=== PATIENT | male | born 1985 | race Caucasian/White ===

== ENCOUNTER 2017-03-06 19:45 | Emergency (ER) | payer OTHER ==
[2017-03-06 20:18] VITALS: BP 135/99; PULSE 71; RESP 18; O2SAT 98
--- NOTE | 2017-03-06 20:31 | PD ---
HPI Chief Complaint: Psychiatric Symptoms Time Seen by Provider: 20:28 Travel History International Travel<30 days: No Contact w/Intl Traveler<30days: No History of Present Illness HPI Patient comes in after being evaluated at different ER facility and placed under Chatman act there and was transferred here to be evaluated by a psychiatrist here in the morning. Patient states he was feeling depressed and thoughts of harming himself but does not have any suicidal or homicidal ideations currently. Patient states he has been under a lot of stress and feeling some depression. Patient denies any medical concerns at this time. Denies any chest pain, shortness breath, fevers, nausea, abdominal pain, or other medical concerns. PFSH Past Medical History Fibromyalgia: Yes Social History Alcohol Use: No Tobacco Use: Yes Substance Use: No Review of Systems Except as stated in HPI: all other systems reviewed are Neg Physical Exam Narrative GENERAL: Well-developed, well nourished, in no acute distress, and non-ill appearing. SKIN: Focused skin assessment warm and dry. HEAD: Atraumatic. Normocephalic. EYES: Pupils equal and round. EOMI. No scleral icterus. No injection or drainage. ENT: No nasal bleeding or discharge. Mucous membranes pink and moist. NECK: Trachea midline. Supple. No nuclear rigidity. CARDIOVASCULAR: Regular rate and rhythm. No murmur appreciated. RESPIRATORY: No accessory muscle use. No respiratory distress. Clear to auscultation. Breath sounds equal bilaterally. MUSCULOSKELETAL: No obvious deformities. No clubbing. No cyanosis. No edema. Full range of motion. NEUROLOGICAL: Awake and alert. No obvious cranial nerve deficits. Motor grossly within normal limits. Normal speech. PSYCHIATRIC: Appropriate mood and affect; insight and judgment normal. Data Data Last Documented VS Vital Signs Date Time Temp Pulse Resp B/P Pulse Ox O2 Delivery O2 Flow Rate FiO2 03/06/17 20:18 71 18 135/99 98 MDM Medical Decision Making Medical Screen Exam Complete: Yes Emergency Medical Condition: Yes Medical Record Reviewed: Yes (records that were sent with patient along with labs from previous ER today were reviewed.) Differential Diagnosis Homicidal, suicidal, depression, adjustment disorder, other Narrative Course Patient was seen and examined. Labs were reviewed. Patient medically cleared for further treatment and evaluation by psych. Final disposition per psych. Diagnosis Primary Impression: Medical clearance for psychiatric admission Condition: Stable Yasir Powers Mar 06, 2017 20:31
[2017-03-06 22:15] VITALS: BP 125/74; PULSE 104; RESP 18; O2SAT 100
[2017-03-07 02:15] VITALS: BP 111/62; PULSE 77; RESP 18; O2SAT 98
[2017-03-07 10:05] VITALS: BP 123/83; PULSE 79; RESP 18; TEMP 98.2; O2SAT 99
--- NOTE | 2017-03-07 10:17 | PD.CONS ---
Provisional Diagnosis Admission Date Pequea I. Adjustment disorder with mixed disturbances of emotion and conduct to 43.25 History of Present Illness Service Psychiatry Consult Requested By EDMD Reason for Consult Compa ordonez Primary Care Physician No Primary Care Physician HPI Patient is a 31-year-old white male was transferred to the [facility] ED, J pod, under Compa ordonez from an [facility] hospital. Compa acted by zhao Garcia that recommended reviewed basically stating depression with suicidal ideation patient reports hearing voices telling him to hurt himself by cutting wrists. Patient is seen screen at that facility appears her tox was negative. At the present time patient sitting quietly in his room on J pod. Patient appears to be somewhat cognitively slowed his speech is slow somewhat simple childlike and concrete. He states his essentially lived his life with his parents. States within the past year he did meet a woman at his restorationism every it appears today have fallen in love, and appears she moved into his family's house with them causing some conflictual relationship. It appears they did get last week, has now left the parental home in her staying in the [facility]. Leading to some of the statements that he made. Today patient denies any suicidality homicidality voices or visions alcohol or drug use. States she just wants to go home to his states the staff at the [facility] a very supportive kind in understanding. He is able to contracted to no harm At the present time patient does not meet Chatman act criteria I will lift the Chatman act. No Rx by me. Is okay for discharge when medically clear and stable. Strongly referral to house next door for counseling and possible medication management Review of Systems Constitutional: DENIES: Diaphoretic episodes, Fatigue, Fever, Weight gain, Weight loss, Chills, Dizziness, Change in appetite, Night Sweats Endocrine: DENIES: Heat/cold intolerance, Polydipsia, Polyuria, Polyphagia Eyes: DENIES: Blurred vision, Diplopia, Eye inflammation, Eye pain, Vision loss , Photosensitivity, Double Vision Ears, nose, mouth, throat: DENIES: Tinnitus, Hearing loss, Vertigo, Nasal discharge, Oral lesions, Throat pain, Hoarseness, Ear Pain, Running Nose, Epistaxis, Sinus Pain, Toothache, Odynophagia Respiratory: DENIES: Apneas, Cough, Snoring, Wheezing, Hemoptysis, Sputum production, Shortness of breath Cardiovascular: DENIES: Chest pain, Palpitations, Syncope, Dyspnea on Exertion , PND, Lower Extremity Edema, Orthopnea, Claudication Gastrointestinal: DENIES: Abdominal pain, Black stools, Bloody stools, Constipation, Diarrhea, Nausea, Vomiting, Difficulty Swallowing, Anorexia Genitourinary: DENIES: Sexual dysfunction, Urinary frequency, Urinary incontinence, Urgency, Hematuria, Dysuria, Nocturia, Penile Discharge, Testicular Pain, Testicular Swelling Musculoskeletal: DENIES: Joint pain, Muscle aches, Stiffness, Joint Swelling, Back pain, Neck pain Integumentary: DENIES: Abnormal pigmentation, Nail changes, Pruritus, Rash Hematologic/lymphatic: DENIES: Bruising, Lymphadenopathy Immunologic/allergic: DENIES: Eczema, Urticaria Neurologic: DENIES: Abnormal gait, Headache, Localized weakness, Paresthesias, Seizures, Speech Problems, Tremor, Poor Balance Psychiatric: DENIES: Anxiety, Confusion, Mood changes, Depression, Hallucinations, Agitation, Suicidal Ideation, Homicidal Ideation, Delusions Past Family Social History Coded Allergies: No Known Allergies (Unverified , 03/07/17) Past Medical History Patient states this a history of fibromyalgia family. Though he has never been diagnosed with that he questions if he may have that No Active Prescriptions or Reported Meds Family History Patient lived most of his life with his family denies mental illness and family Social History Patient Evonne 1 week lives in the house of [facility] Patient's Strengths (min. 2) Patient verbal able to access health care is cooperative Physical Exam Patient seen screened in ED at referral hospital exam reviewed and agreed with Vital Signs Vital Signs Date Time Temp Pulse Resp B/P Pulse Ox O2 Delivery O2 Flow Rate FiO2 03/07/17 02:15 77 18 111/62 98 Room Air Mental Status Examination Alert oriented white male appears younger than stated age clean and neat with poor to fair eye contact Appearance Clean neatly Speech: Hesitant, Slow, Other (somewhat concrete and childlike) Orientation: x3 Memory: Unremarkable Thought Process: Linear, Other (somewhat concrete and childlike) Thought Content: Unremarkable Language Fair Fund of Knowledge Poor Hallucination Type: None (denies) Attention and Concentration: Other (fair) Suicidal Ideation: No Previous Suicide Attempts: No Homicidal Ideation: No Previous Homicide Attempts: No Insight: Poor Judgment: Poor Affect: Other (decreased range and intensity) Mood: Euthymic (to mildly dysphoric and restricted) Motor Activity: Normal gait Assessment & Plan Problem List: (1) Adjustment disorder with mixed disturbance of emotions and conduct ICD Code: F43.25 Assessment & Plan Estimated LOS: days patient does not meet Chatman criteria will lift Compa act as okay by psych for discharge medically clear and stable. No Rx by me. Referred to house next door in [place] for counseling and medication assessment Discharge Planning See above Request HC Surrog/Guard Advoc?: No Enrique Coats MD Mar 07, 2017 10:17
== END 2017-03-07 13:01 | disposition home or self-care (01) ==
LOC: NEPJ 19:45
DX: F43.25 Adjustment disorder with mixed disturbance of emotions and conduct (principal); R45.851 Suicidal ideations
CPT/HCPCS: 99284